=== PATIENT | male | born 1950 | race Caucasian/White ===

== ENCOUNTER 2021-02-25 09:23 | Emergency (ER) | payer OTHER ==
[~2021-02-25] VITALS: Ht 165.1 cm; Wt 102.1 kg
[2021-02-25] MEDS ORDERED: CRESTOR20 MG PO (09:47)
[2021-02-25] MEDS ORDERED: LISINOPRIL10 MG PO (09:48)
[2021-02-25] MEDS ORDERED: KETO10TA2 PO (11:39)
[2021-02-25] MEDS ORDERED: SKELAXIN800 MG PO (11:39)
== END 2021-02-25 12:07 | disposition home or self-care (01) ==
LOC: ER 09:23
DX: S33.5XXA Sprain of ligaments of lumbar spine, initial encounter (principal); M54.59 Other low back pain; X50.0XXA Overexertion from strenuous movement or load, initial encounter; Y93.89 Activity, other specified; Y92.810 Car as the place of occurrence of the external cause; Y99.8 Other external cause status